=== PATIENT | female | born 1990 | race African-American/Black ===

== ENCOUNTER 2019-02-09 12:15 | Emergency (ER) | payer SELFPAY ==
[2019-02-09 13:09] LABS: Bilirubin Negative (Negative); Blood, Urine Trace (Negative); Clarity CLOUDY (Clear); Glucose, Urine (Dipstick) Negative (Negative); Leukocyte Small (Negative); Nitrite Negative (Negative); Protein, Urine (Dipstick) 30 mg/dL (Neg-Trace); Specific Gravity, Urine 1.028 (1.002-1.036)
[2019-02-09 13:10] LABS: Bacteria/HPF 2+ HPF (None Seen); Hyaline Casts/LPF 7-10 HYALINE CAST LPF (0-3 Hyaline); Pathc Cast-AUWi Flag 1.49 (0-2.49); Pregnancy Test - Urine (BHCG) Negative (Negative); Pregu Control Background? CLEAR/WHITE (CLR/WHITE); Pregu Control Bar Appear? YES (CONTROL BAR); Specific Gravity 1.028 (1.002-1.036); WBC/HPF 21-50 HPF (0-3)
== END 2019-02-09 13:35 | disposition home or self-care (01) ==
LOC: ERS 12:15
DX: N39.0 Urinary tract infection, site not specified (principal)
CPT/HCPCS: 81003; 81015; 81025; 87077; 87086; 99283

== ENCOUNTER 2019-06-21 16:18 | Emergency (ER) | payer SELFPAY ==
[2019-06-21] MEDS ORDERED: Ondansetron ODT 4 MG TAB ONE (17:28)
== END 2019-06-21 17:33 | disposition home or self-care (01) ==
LOC: ERS 16:18
DX: H10.023 Other mucopurulent conjunctivitis, bilateral (principal); R11.0 Nausea; F41.9 Anxiety disorder, unspecified
CPT/HCPCS: 99282; Q0162

== ENCOUNTER 2020-02-14 09:10 | Emergency (ER) | payer SELFPAY ==
--- NOTE | 2020-02-14 09:48 | RAD ---
EXAM: CHEST TWO VIEWS 02/14/2020 9:46 AM HISTORY: Cough COMPARISON: None. FINDINGS: Lungs: No acute airspace consolidation. Heart: Normal in size and contour. Pulmonary Vessels: Normal. Costophrenic Angles: Clear. Pneumothorax: None. Osseous Structures: Intact. Additional Findings: None. IMPRESSION: No significant acute intrathoracic disease.
[2020-02-14] MEDS ORDERED: Ondansetron ODT 4 MG TAB ONE ×2 (09:50→09:52)
== END 2020-02-14 10:50 | disposition home or self-care (01) ==
LOC: ERS 09:10
DX: J06.9 Acute upper respiratory infection, unspecified (principal); F41.9 Anxiety disorder, unspecified
CPT/HCPCS: 71046; 87804; Q0162

== ENCOUNTER 2020-09-10 11:11 | Emergency (ER) | payer OTHER, SELFPAY ==
[2020-09-10 19:06] LABS: SARS-CoV-2 MS2 Positive; SARS-CoV-2 N Gene Negative; SARS-CoV-2 S Gene Negative; SARS-CoV-2 by NAA Not Detected (NotDetected); SARS-CoV-2 orf1ab Negative
== END 2020-09-10 11:54 | disposition home or self-care (01) ==
LOC: ERS 11:11
DX: J02.9 Acute pharyngitis, unspecified (principal); Z20.828 Contact with and (suspected) exposure to other viral communicable diseases; F41.9 Anxiety disorder, unspecified
CPT/HCPCS: 87635; 99283; U0003

== ENCOUNTER 2021-02-25 15:11 | Emergency (ER) | payer OTHER, SELFPAY ==
[2021-02-25 22:57] LABS: SARS-CoV-2 PCR by NAA Not Detected (NotDetected)
== END 2021-02-25 18:24 | disposition home or self-care (01) ==
LOC: ERS 15:11
DX: J02.0 Streptococcal pharyngitis (principal); Z20.822 Contact with and (suspected) exposure to COVID-19
CPT/HCPCS: 87081; 87430; 87635; 99283; U0003; U0005

== ENCOUNTER 2022-05-24 08:36 | Emergency (ER) | payer SELFPAY | END 2022-05-24 10:23 | disposition home or self-care (01) | LOC: ERS 08:36 | DX: R05.9 Cough, unspecified (principal); Z20.822 Contact with and (suspected) exposure to COVID-19 | CPT/HCPCS: 87081; 87430; 99283; U0003; U0005 ==

== ENCOUNTER 2022-06-08 09:33 | Emergency (ER) | payer SELFPAY | END 2022-06-08 10:13 | disposition home or self-care (01) | LOC: ERS 09:33 | DX: B34.9 Viral infection, unspecified (principal); Z20.822 Contact with and (suspected) exposure to COVID-19 | CPT/HCPCS: 99283; U0003; U0005 ==

== ENCOUNTER 2022-06-23 11:27 | Emergency (ER) | payer SELFPAY | END 2022-06-23 13:51 | disposition home or self-care (01) | LOC: ERS 11:27 | DX: J20.9 Acute bronchitis, unspecified (principal) | CPT/HCPCS: 71045 ==